=== PATIENT | female | born 1985 | race Native Hawaiian/Other Pacific Islander ===

== ENCOUNTER 2016-06-16 19:05 | Emergency (ER) | payer OTHER ==
[~2016-06-16] VITALS: Ht 172.7 cm; Wt 136.1 kg
[~2016-06-16 19:05] MED LIST: ACET5TAB36 PO; ACID REDUCER20 MG OR; CARAFATE1 GM PO; CIPROFLOXACN0.3 % OP; CITALOPRAM10 MG PO; CLONIDINE0.1 MG PO; CYCL10TA35 PO; DICY20TA34 PO; HYDR10TA47A PO; HYDROCHLOROT12.5 M1 PO; IBUP-573 PO; METO50TA27 PO; NEXIUM40 M1 PO; POT CHLORIDE10 ME1 PO; PREG75CA PO; PROM25TA52 PO; RANI150T78 PO
[2016-06-16 20:07] VITALS: BP 165/85; TEMP 98.6
== END 2016-06-16 20:12 | disposition home or self-care (01) ==
LOC: ED 19:05
PROC: 0T2BX0Z Change Drainage Device in Bladder, External Approach (ICD-10-PCS; principal; 2016-06-16)
DX: T83.021A Displacement of indwelling urethral catheter, initial encounter (principal)
CPT/HCPCS: 99282; J1885

== ENCOUNTER 2016-07-11 21:19 | Emergency (ER) | payer OTHER ==
[~2016-07-11] VITALS: Ht 175.3 cm; Wt 136.1 kg
[2016-07-11 22:51] LABS: PLATELET COUNT 499 K/uL (152-353)
[2016-07-11 23:04] LABS: POTASSIUM 3.6 mmol/L (3.6-5.2); SODIUM 136 mmol/L (136-145)
[2016-07-11 23:32] LABS: PARTIAL THROMBOPLASTIN TIME 26.1 SECONDS (24.5-33.6)
[2016-07-12 01:24] VITALS: BP 175/84; TEMP 98
== END 2016-07-12 01:34 | disposition home or self-care (01) ==
LOC: ED 21:19
PROVIDERS: Specialist
DX: J45.909 Unspecified asthma, uncomplicated (principal); J40 Bronchitis, not specified as acute or chronic; R11.2 Nausea with vomiting, unspecified; I45.10 Unspecified right bundle-branch block
CPT/HCPCS: 36415; 80053; 82550; 82553; 84484; 85027; 85610; 85730; 93005; 96374; 99284; J1100; J1200

== ENCOUNTER 2016-08-25 05:57 | Emergency (ER) | payer OTHER ==
[~2016-08-25] VITALS: Ht 172.7 cm; Wt 136.2 kg
[2016-08-25 07:05] LABS: PLATELET COUNT 452 K/uL (152-353)
[2016-08-25 07:14] LABS: POTASSIUM 4.2 mmol/L (3.6-5.2); SODIUM 137 mmol/L (136-145)
[2016-08-25 07:46] VITALS: BP 154/92; TEMP 98.2
== END 2016-08-25 07:46 | disposition home or self-care (01) ==
LOC: ED 05:57
PROVIDERS: Specialist
DX: R10.9 Unspecified abdominal pain (principal); R94.5 Abnormal results of liver function studies
CPT/HCPCS: 80053; 81000; 81025; 85027; 96372; 99283; J1885; J2550

== ENCOUNTER 2018-11-10 08:21 | Outpatient (CLI) | payer OTHER | END 2018-11-10 20:14 | disposition home or self-care (01) | LOC: MRI 08:21 | DX: M54.42 Lumbago with sciatica, left side (principal) ==

== ENCOUNTER 2018-11-10 09:34 | Emergency (ER) | payer OTHER ==
[~2018-11-10] VITALS: Ht 167.6 cm; Wt 158.8 kg
[2018-11-10 09:45] VITALS: TEMP 98.3
[2018-11-10 10:36] LABS: PLATELET COUNT 558 K/uL (152-353)
[2018-11-10 10:46] LABS: POTASSIUM 3.9 mmol/L (3.6-5.2); SODIUM 139 mmol/L (136-145)
[2018-11-10 11:58] VITALS: BP 164/95
== END 2018-11-10 11:58 | disposition home or self-care (01) ==
LOC: ED 09:34
PROVIDERS: Emergency Medicine
DX: M25.512 Pain in left shoulder (principal); M54.2 Cervicalgia; M79.18 Myalgia, other site
CPT/HCPCS: 36415; 80053; 81000; 84484; 85027; 96374; 96375; 99284; J1940; J2270; J2405

== ENCOUNTER 2019-12-26 10:48 | Outpatient (CLI) | payer OTHER | END 2019-12-26 19:12 | disposition home or self-care (01) | LOC: RAD 10:48 | DX: M25.569 Pain in unspecified knee (principal); G89.4 Chronic pain syndrome ==

== ENCOUNTER 2020-02-02 13:07 | Emergency (ER) | payer OTHER ==
[~2020-02-02] VITALS: Ht 167.6 cm; Wt 158.8 kg
[2020-02-02 13:14] VITALS: TEMP 99.8
[2020-02-02 14:34] LABS: PLATELET COUNT 530 K/uL (152-353)
[2020-02-02 14:41] LABS: POTASSIUM 4.1 mmol/L (3.6-5.2)
[2020-02-02 17:28] VITALS: BP 166/99
== END 2020-02-02 17:42 | disposition home or self-care (01) ==
LOC: ED 13:07
PROVIDERS: Family Medicine
DX: R10.84 Generalized abdominal pain (principal); I10 Essential (primary) hypertension; Z98.2 Presence of cerebrospinal fluid drainage device; Z98.890 Other specified postprocedural states
CPT/HCPCS: 80053; 81000; 83605; 85027; 87040; 87205; 96365; 96375; 99284; J2175; J2405; J2543

== ENCOUNTER 2022-01-06 10:31 | Outpatient (CLI) | payer OTHER | END 2022-01-06 21:02 | disposition home or self-care (01) | LOC: RAD 10:31 | PROVIDERS: ATTEND Family Medicine | DX: M54.2 Cervicalgia (principal); M25.512 Pain in left shoulder ==